=== PATIENT | female | born 1990 | race Caucasian/White ===

== ENCOUNTER → 2020-03-13 15:03 | Outpatient (CLI) | payer OTHER, SELFPAY ==
[2020-03-13 17:25] LABS: Absolute Lymphocyte Count 1.59 X10^3/uL (0.83-4.51); Basophil# 0.05 X10^3/uL; Basophil% 0.8 % (0-1); Eosinophil# 0.06 X10^3/uL; Hematocrit 36.8 % (37-47); Hemoglobin 12.5 g/dL (12.0-15.0); Lymphocyte # 1.59 X10^3/ul (4.0); Mean Corpuscular Volume 91.3 fL (81-99); Mean Platelet Vol. 9.3 fl (6.2-12.0); Monocyte% 6.5 % (0-10); NRBC Flagged by Analyzer 0 % (0-5); Neutrophil # 4.01 X10^3/uL (2.7-7.7); Neutrophil % 65.5 % (47-70); Platelet Count 254 K/mm3 (150-450); RBC Distribution Width CV 12.8 % (11.6-14.6); Red Blood Count 4.03 M/mm3 (4.2-5.4); White Blood Count 6.1 K/mm3 (4.4-11.0)
[2020-03-13 17:31] LABS: Color, Urine Straw (Yellow); Glucose, Dipstick Normal (Normal); Ketone-Dipstick Negative (Negative); Leukocyte Esterase-Dipstick Negative /ul (Negative); Nitrite-Dipstick Negative (Negative); Occult Blood-Urine Negative /ul (Negative); Protein-Dipstick Negative (Negative); Urine Bilirubin Dipstick Negative (Negative); Urine Clarity Clear (Clear); Urine Urobilinogen Normal (Normal)
[2020-03-13 17:45] LABS: Thyroid Stim Hormone (TSH) 1.68 uIU/mL (0.358-3.74)
[2020-03-13 18:27] LABS: Amphetamine Urine VISTA NEGATIVE (<1000 ng/mL); Barbiturate Urine VISTA NEGATIVE (< 200 ng/mL); Benzodiazepine Urine VISTA NEGATIVE (< 200 ng/mL); Cocaine Urine VISTA NEGATIVE (< 300 ng/mL); Ecstacy Urine VISTA NEGATIVE (< 500 ng/mL); Methadone Urine VISTA NEGATIVE (< 300 ng/mL); PCP Urine VISTA NEGATIVE (< 25 ng/mL); THC Urine VISTA NEGATIVE (< 50 ng/mL); Vista UDS pH Range 6
[2020-03-16 09:55] LABS: HIV - WCH Non-Reactive (Nonreactive); Hepatitis B Surface Antigen Non-Reactive (Nonreactive); Hepatitis C Antibody Non-Reactive (Nonreactive); Rubella IgG > 500.0 IU/mL; Vitamin D,25 Hydroxy 18.4 ng/mL
[2020-03-19 01:57] LABS: Prenatal RPR NONREACTIVE (NONREACTIVE)
== END ==
PROVIDERS: PCP Family Medicine; Visit Provider Obstetrics & Gynecology
DX: Z34.81 Encounter for supervision of other normal pregnancy, first trimester (principal)
CPT/HCPCS: 36415; 80307; 81002; 82306; 84443; 85025; 86703; 86762; 86803; 87340; 87491; 87591

== ENCOUNTER → 2020-05-13 11:07 | Outpatient (CLI) | payer OTHER, SELFPAY ==
[2020-05-17 03:06] LABS: AFP MoM Value 1.09 (.); AFP Value-EIA 32.8 ng/mL (.); Comment Report (.); DIA MoM Value 0.46 (.); DIA Value-EIA 72.71 pg/mL (.); DSR (By Age) 502 (.); DSR (Second Trimester) 10000 (.); Gestat. Age Based On As provided (.); Insulin Dep Diabetes No (.); Maternal Age At EDD 32.3 yr (.); hCG MoM 0.65 (.); hCG Value 26060 mIU/mL (.)
== END ==
PROVIDERS: PCP Family Medicine; Visit Provider Obstetrics & Gynecology
DX: Z34.82 Encounter for supervision of other normal pregnancy, second trimester (principal)
CPT/HCPCS: 36415; 82105; 82677; 84702

== ENCOUNTER → 2020-08-05 15:58 | Outpatient (CLI) | payer OTHER, SELFPAY ==
[2020-08-05 17:59] LABS: Glucose Challenge Gest 1H 50g 121 mg/dL (70-140)
[2020-08-05 18:01] LABS: Hematocrit 32.7 % (37-47); Hemoglobin 10.7 g/dL (12.0-15.0); Mean Corp Hgb Conc 32.7 g/dL (32-36); Mean Corpuscular Hgb 30.7 pg (27.0-32.0); Mean Platelet Vol. 9.7 fl (6.2-12.0); Platelet Count 198 K/mm3 (150-450); RBC Distribution Width CV 13.3 % (11.6-14.6); RBC Distribution Width SD 45.3 fl (35.1-43.9); Red Blood Count 3.48 M/mm3 (4.2-5.4); White Blood Count 8.7 K/mm3 (4.4-11.0)
[2020-08-05 18:08] LABS: Vitamin D,25 Hydroxy 35.9 ng/mL
== END ==
PROVIDERS: PCP Family Medicine; Visit Provider Obstetrics & Gynecology
DX: Z34.83 Encounter for supervision of other normal pregnancy, third trimester (principal)
CPT/HCPCS: 36415; 82306; 82950; 85027

== ENCOUNTER → 2020-10-07 11:10 | Outpatient (CLI) | payer OTHER, SELFPAY | PROVIDERS: PCP Family Medicine; Visit Provider Obstetrics & Gynecology | DX: Z34.83 Encounter for supervision of other normal pregnancy, third trimester (principal); Z36.85 Encounter for antenatal screening for Streptococcus B | CPT/HCPCS: 87081 ==

== ENCOUNTER 2020-10-23 15:50 | Inpatient (IN) | payer BC, SELFPAY ==
[2020-10-23 16:12] VITALS: BMI 31.8
--- NOTE | 2020-10-23 16:49 | PCM.HPOB.BLA ---
History and Physical Date of Admission: 10/23/20 HPI: 30 yo at 39/2w, with DEMETRIO 10/28/20 by LMP, presents term induction of labor. Denies LOF, VB, contractions. +FM. Denies NASH, vision changes, chest pain, dyspnea, nausea/emesis. This is complicated by: history of HSV on valtrex suppression last outbreak 8 years ago, no prodromal symptoms. Outbreak in past was vulvar. Obstetrical History G1 current Past Medical History HSV Medications PNV, valtrex, fluoxetine, PNV, vitamin D Past Surgical History hernia repair Social History Tobacco use: former Alcohol use: denies Illicit drug use: denies Labs Blood type: A pos Rubella: immune Hep B/C: neg/neg HIV: neg RPR: nonreactive GBS: neg 10/07 Allergies NKDA Review of Systems General: alert and oriented HEENT: _denies change of vision Heart/lungs: _denies CP, SOB GI: _denies nausea, vomiting, dysuria, diarrhea MSK: _denies calf pain, tenderness Physical Exam Vitals pending General: a&o x3, NAD HEENT: normocephalic, atraumatic Cardio: no JVD Resp: no increased work in breathing Abdomen: soft, gravid, nontender Extremities: _minimal-moderate edema CE: per RN FHT: 145/mod fabiola/+accel/no decel [place]: rare Labs pending Assessment & Plan 30 yo at 39/2w, with DEMETRIO 10/28/20 by LMP, presents term induction of labor. 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 Admit to L&D - Routine labor orders - Cytotec induction - GBS neg - CEFM - Anesthesia to see - HSV on suppression. Last outbreak, vulvar, was 8 years ago. No prodromal symptoms. Patient aware of risk with HSV exposure.
[2020-10-23 17:32] LABS: Absolute Lymphocyte Count 1.87 X10^3/uL (0.83-4.51); Absolute Neutrophil Count 6.1 X10^3/uL (2.0-7.7); Basophil# 0.03 X10^3/uL; Basophil% 0.3 % (0-1); Eosinophil# 0.09 X10^3/uL; Hematocrit 34.6 % (37-47); Lymphocyte # 1.87 X10^3/ul (4.0); Lymphocyte % 21.1 % (19-41); Mean Corp Hgb Conc 31.8 g/dL (32-36); Mean Corpuscular Hgb 28.6 pg (27.0-32.0); Mean Corpuscular Volume 90.1 fL (81-99); Mean Platelet Vol. 9.5 fl (6.2-12.0); Monocyte# 0.62 X10^3/uL; NRBC Flagged by Analyzer 0 % (0-5); Neutrophil # 6.14 X10^3/uL (2.7-7.7); Neutrophil % 69.1 % (47-70); Platelet Count 183 K/mm3 (150-450); RBC Distribution Width CV 14.6 % (11.6-14.6); RBC Distribution Width SD 46.8 fl (35.1-43.9); Red Blood Count 3.84 M/mm3 (4.2-5.4); White Blood Count 8.9 K/mm3 (4.4-11.0)
[2020-10-23] MEDS: miSOPROStol 25 MCG TABLET PO (17:39)
[2020-10-23 17:45] VITALS: TEMP 36.7
[2020-10-23 17:49] VITALS: BP 125/71; PULSE 89
[2020-10-23 19:18] VITALS: BP 125/72; PULSE 86; TEMP 36.8
[2020-10-23] MEDS: miSOPROStol 50 MCG TABLET PO (21:33)
[2020-10-23 23:33] VITALS: BP 135/85; PULSE 100
[2020-10-23 23:34] VITALS: TEMP 36.6
[2020-10-24] VITALS (64 sets, daily range): BP systolic 70–144; BP diastolic 45–96; PULSE 54–136; RESP 16; TEMP 36.1–37.1; O2SAT 82–100
[2020-10-24 00:52] LABS: Chlamydia Trachomatis by PCR Negative (Negative); Neisserai gonorrhoeae by PCR Negative (Negative); Probe Check PASS; Sample Adequacy Control PASS; Specimen Processing Control PASS
[2020-10-24] MEDS: miSOPROStol 50 MCG TABLET PO (03:44)
[2020-10-24] MEDS: 0.9% Saline Lock 10 ML Syringe IV (05:23)
[2020-10-24] MEDS: Oxytocin 30 units/NS 500 ml 30 UNITS/500 ML IV.SOLN IV (10:05)
[2020-10-24] MEDS: Lactated Ringers 1,000 ML 50 ML IV (10:07)
--- NOTE | 2020-10-24 11:10 | PN_ITS ---
Progress Note Patient seen. Examined by RN 2 cm. FHR cat I 140/mod fabiola/+accel/no decel, [place] irregular. Plan: switch to and titrate pitocin as tolerated. STROKE Vital Signs/Narrative: Vital Signs Temp Pulse BP Pulse Ox 10/24/20 10:42 86 131/91 H 10/24/20 10:08 92 129/82 H 10/24/20 07:14 98.1 F 99 97 10/24/20 07:13 101 H 140/89 H
[2020-10-24] MEDS: Lactated Ringers 500 ML 999 ML IV ×3 (17:00→21:04)
[2020-10-24] MEDS: fentaNYL-bupivacaine (epidural) 100 ML BAG EPIDURAL ×2 (18:07→23:48)
[2020-10-24] MEDS: Ondansetron 4 MG/2 ML Vial IV (19:40)
[2020-10-24] MEDS: Lactated Ringers 1,000 ML 200 ML IV (20:45)
[2020-10-25] VITALS (35 sets, daily range): BP systolic 96–127; BP diastolic 55–83; PULSE 85–208; RESP 16–18; TEMP 36.2–37.7; O2SAT 95–100
[2020-10-25] MEDS: Lactated Ringers 1,000 ML 200 ML IV ×4 (01:38→15:58)
[2020-10-25] MEDS: Acetaminophen 500 MG Tablet PO (03:02)
[2020-10-25] MEDS: fentaNYL-bupivacaine (epidural) 100 ML BAG EPIDURAL ×3 (05:53→17:10)
[2020-10-25] MEDS: Ondansetron 4 MG/2 ML Vial IV (18:30)
[2020-10-25] MEDS: Sodium Citrate/Citric Acid 30 ML UDC PO (18:31)
[2020-10-25] MEDS: Cefazolin 2 GM in 0.9% Normal Saline 100 ML IV (18:39)
--- NOTE | 2020-10-25 19:27 | OP.PCM_ITS ---
Delivery Classification: SANJANA Final DEMETRIO: 10/28/20 Final DEMETRIO Source: LMP Gestational age: 39 Weeks and 4 Days Type of Anesthesia:: Epidural Date of Procedure: 10/25/20 Pre-Operative Diagnosis: Zepeda intrauterine . Failed induction of labor, first stage arrest. Post-Operative Diagnosis: Zepeda intrauterine . Failed induction of labor, first stage arrest. Asynclitic lie. Indications: This is a 30-year-old G1, P0 at 39 weeks and 4 days who presented for induction of labor at term. Patient received Cytotec followed by Pitocin for induction management. She had artificial rupture of membranes this morning at 7 AM. Patient progressed through labor to 9 cm. At which time she continued to be unc hanged for greater than 6 hours. Fetus did not tolerate titration of Pitocin, with periods of marked variability after increasing Pitocin dose. At that time patient elected for section. All risks, benefits, alternatives discussed with the patient. Risks include but are not limited to: Risk of bleeding to the point of transfusion, infection, injury to surrounding tissue including bowel or bladder potentially requiring Champion catheter use, VTE, ICU admission. Patient aware and consented. Indications for : Failure to Progress Description of Procedure: Patient was taken to the operating room, epidural was dosed. Patient placed in the supine position with a left lateral tilt. Prepped and draped in the usual sterile fashion. Pfannenstiel skin incision made with scalpel carried down through subcutaneous tissue. Fascia nicked on either side of midline and extended bilaterally with Rose scissors. Vincent clamps used to grasp superior fascial edge which was tented up and underlying rectus muscles were dissected off bluntly. Vincent clamps moved to the inferior fascial edge which was tented up and underlying rectus muscles were dissected off bluntly and sharply at midline using Rose scissors. Hemostats were used to separate the rectus muscles the midline, peritoneum grasped with with hemostats and incised and entered with Metzenbaum scissors. Extended bluntly. Bladder blade placed. Vesicouterine peritoneum identified and a bladder flap was created with Metzenbaum scissors. Bladder blade replaced. Low transverse uterine incision made with scalpel, extended bluntly. Hand placed into the uterus and head was elevated to the level of the incision, bladder blade removed. With the assistance of gentle f undal pressure head delivered followed by body. Asynclitic lie noted. Nuchal cord around the neck noted, loose and reduced. Cord clamped and cut. Baby handed to nursing. Spontaneous delivery of placenta. Uterus exteriorized and cleared of all clots. Normal-appearing uterus, bilateral fallopian tubes and ovaries. Uterine incision closed with a running locking suture followed by a second imbricating stitch. Uterus replaced into the abdomen. Hysterotomy closure noted to be hemostatic. Peritoneum closed in a running fashion. Fascia closed in a running fashion. Subcutaneous tissue then closed in a running fashion. Skin closed with a running subcuticular stitch. At the end of procedure all needle, lap, sponge counts were correct x3. Urine output 250 cc. Amniotic Membrane Rupture Type: Artificial Amniotic Fluid Description: Clear Fluids Replaced: 900 cc Esitmated Blood Loss (ml): 700 cc Infant Gender: Female (1 minute): 8 (5 minute): 9 Delayed cord clamping: Yes Antibiotic Given: Ancef 2 grams IV x1, Zithromax 500 mg/5 mL X1
[2020-10-25] MEDS: Oxytocin 30 units/NS 500 ml 30 UNITS/500 ML IV.SOLN 167 UNITS IV (20:11)
[2020-10-25] MEDS: Acetaminophen 500 MG Tablet 1000 MG PO (20:35)
--- NOTE | 2020-10-25 20:43 | NURSING ---
Epidural catheter removed in OR after surgery. Blue tip intact.
[2020-10-25] MEDS: Lactated Ringers 1,000 ML 100 ML IV (23:25)
[2020-10-26] VITALS (9 sets, daily range): BP systolic 113–128; BP diastolic 66–82; PULSE 94–125; RESP 16–18; TEMP 35.9–37.3; O2SAT 95–100
[2020-10-26] MEDS: Ketorolac 30 MG/ML Syringe IV ×4 (00:28→18:17)
--- NOTE | 2020-10-26 01:52 | NURSING ---
Mepilex dressing noted to be wet from shower. Mepilex dressing removed.
[2020-10-26] MEDS: 0.9% Saline Lock 10 ML Syringe IV ×3 (01:53→12:48)
[2020-10-26] MEDS: Acetaminophen 500 MG Tablet 1000 MG PO ×3 (02:01→18:18)
--- NOTE | 2020-10-26 02:03 | NURSING ---
Call placed to Dr. Lynn to notify that patient's mepilex dressing was saturated from water from the shower, dressing was removed. Verbal order from Dr. Lynn to replace mepilex with a new mepilex dressing. New mepilex dressing applied, dressing now dry and intact. Incision was clean. No redness or swelling noted. Minimal amount of serosanguineous drainage.
[2020-10-26] MEDS: Enoxaparin 40 MG/0.4 ML Syringe SC (06:09)
[2020-10-26 06:16] LABS: Hematocrit 27.1 % (37-47); Hemoglobin 8.9 g/dL (12.0-15.0); Mean Corp Hgb Conc 32.8 g/dL (32-36); Mean Corpuscular Hgb 29.4 pg (27.0-32.0); Mean Corpuscular Volume 89.4 fL (81-99); Mean Platelet Vol. 9.7 fl (6.2-12.0); Platelet Count 173 K/mm3 (150-450); RBC Distribution Width SD 48.7 fl (35.1-43.9); Red Blood Count 3.03 M/mm3 (4.2-5.4); White Blood Count 12.2 K/mm3 (4.4-11.0)
[2020-10-26] MEDS: oxyCODONE 5 MG Tablet PO ×2 (08:03→19:38)
--- NOTE | 2020-10-26 08:34 | PN.OBGYN_ITS ---
Subjective: POD#1 Feeling well. . Lochia minimal. Pain manageable. - Physical Exam Vitals/I&O's: Vital Signs Temp Pulse Resp BP Pulse Ox 99.1 F 100 16 116/68 99 10/26/20 08:18 10/26/20 08:18 10/26/20 08:18 10/26/20 08:18 10/26/20 08:18 Oxygen Delivery Method Room Air Weight: 89.358 kg Body Mass Index (BMI) 31.8 Intake and Output for Last 24 Hours 10/24/20/10/26/20 23:59 23:59 23:59 Intake Total 2648.67 / 2648.67 6147.13 / 6147.13 1181.67 / 1181.67 Output Total 1300 / 1300 250 / 250 Balance 2648.67 / 2648.67 4847.13 / 4847.13 931.67 / 931.67 General: Alert, Oriented x3, No apparent distress HEENT: Atraumatic, Normocephalic Neck: Supple Lungs: Normal air movement Cardiovascular: Regular rate Abdomen: Soft - Mildly tender, dressing c/d. uterus 2 cm below umbilicus Extremities: No edema - trace Neurological: Cranial nerves II-XII grossly intact Psych/Mental Status: Normal Affect Microbiology Past 72 Hours 10/23/20 17:20 Mucosa - Nose SARS-CoV-2 Antigen (Rapid) - Final Laboratory Results 10/26/20 06:10: WBC 12.2 H, RBC 3.03 L, Hgb 8.9 L, Hct 27.1 L, MCV 89.4, MCH 29.4, MCHC 32.8, RDW Std Deviation 48.7 H, RDW Coeff of Duong 15.0 H, Plt Count 173, MPV 9.7 Current Medications Acetaminophen (Acetaminophen 500 Mg Tablet) 1,000 mg PO Q6H [facility] Last Admin: 10/26/20 02:01 Dose: 1,000 mg Documented by: Bisacodyl (Bisacodyl 10 Mg Suppository) 10 mg RECTAL UD PRN PRN Reason: If no BM Diphenhydramine HCl (Diphenhydramine 25 Mg Capsule) 25 mg PO Q6H PRN PRN PRN Reason: ITCHING Stop: 10/26/20 19:49 Enoxaparin Sodium (Enoxaparin 40 Mg/0.4 Ml Syringe) 40 mg SC DAILY [facility] Last Admin: 10/26/20 06:09 Dose: 40 mg Documented by: Hydrocortisone (Hydrocortisone 2.5% Crm) 1 applic TOPICAL TID PRN PRN; Protocol PRN Reason: Discomfort Ibuprofen (Ibuprofen 600 Mg Tablet) 600 mg PO Q6H [facility] Ketorolac Tromethamine (Ketorolac 30 Mg/Ml Syringe) 30 mg IV Q6H [facility] Stop: 10/26/20 18:31 Last Admin: 10/26/20 05:59 Dose: 30 mg Documented by: Methylergonovine Maleate (Methylergonovine 0.2 Mg/Ml Ampul) 0.2 mg IM X1 PRN PRN Reason: Uterine Atony Nalbuphine HCl (Nalbuphine 10 Mg/Ml Ampul) 5 mg IV Q3H PRN PRN PRN Reason: ITCHING Stop: 10/26/20 19:49 Naloxone HCl (Naloxone 0.4 Mg/Ml Syringe) 0.02 mg IV Q1M PRN PRN Reason: RR <10 and pt unresponsive Ondansetron HCl (Ondansetron 4 Mg/2 Ml Vial) 4 mg IV Q4H PRN PRN PRN Reason: Nausea Oxycodone HCl (Oxycodone 5 Mg Tablet) 5 - 10 mg PO Q4H PRN PRN PRN Reason: Pain Score 4-10 Last Admin: 10/26/20 08:03 Dose: 5 mg Documented by: Prochlorperazine Edisylate (Prochlorperazine 10 Mg/2 Ml Vial) 10 mg IV Q6H PRN PRN PRN Reason: NAUSEA Senna/Docusate Sodium (Senna/Docusate Sodium 1 Tablet) 0 tablet PO DAILY [facility] Simethicone (Simethicone 80 Mg Tablet) 80 mg PO PCHS PRN PRN Reason: Indigestion/stomach pain Sodium Chloride (0.9% Saline Lock 10 Ml Syringe) 5 - 15 ml IV UD PRN PRN Reason: SALINE FLUSH Last Admin: 10/26/20 06:00 Dose: 10 ml Documented by: Medical Necessity - Tobacco Use Smoking Status: Former smoker Assessment/Plan POD#1 s/p primary low transverse section for failure to progress/arrest of first stage. Acute blood loss anemia secondary to surgery, iron supplement at home. . Home POD2-3.
[2020-10-26] MEDS: Senna/Docusate Sodium 1 Tablet PO (12:33)
--- NOTE | 2020-10-26 16:25 | CASEMGMT ---
Social Work Labor and Delivery Unit Consult received and noted for maternal history of anxiety. Records reviewed. Plan: Plan to see patient/mother of baby on 10.27.2020. -LISA [place], WAITER/[employer]
[2020-10-27] MEDS: Ibuprofen 600 MG Tablet PO ×4 (00:16→17:48)
[2020-10-27] MEDS: Acetaminophen 500 MG Tablet 1000 MG PO ×4 (00:16→18:34)
[2020-10-27 02:33] VITALS: BP 130/88; PULSE 97; RESP 16; TEMP 36.7
--- NOTE | 2020-10-27 03:12 | NURSING ---
report received from wanda. this RN to assume care of pt at this time.
[2020-10-27] MEDS: oxyCODONE 5 MG Tablet PO ×3 (04:36→19:37)
[2020-10-27 07:30] VITALS: BP 121/88; PULSE 99; RESP 15; TEMP 36.7
--- NOTE | 2020-10-27 08:45 | PN.OBGYN_ITS ---
Subjective: POD#2 Increased pedal edema. Pain controlled with medication. was going very well until later yesterday. Meeting with today. - Physical Exam Vitals/I&O's: Vital Signs Temp Pulse Resp BP Pulse Ox 98.1 F 99 15 121/88 H 99 10/27/20 07:30 10/27/20 07:30 10/27/20 07:30 10/27/20 07:30 10/26/20 08:18 Oxygen Delivery Method Room Air Weight: 89.358 kg Body Mass Index (BMI) 31.8 Intake and Output for Last 24 Hours 10/25/20 10/26/20 10/27/20 23:59 23:59 23:59 Intake Total 6147.13 / 6147.13 1181.67 / 1181.67 Output Total 1300 / 1300 250 / 250 Balance 4847.13 / 4847.13 931.67 / 931.67 General: Alert, Oriented x3, No apparent distress HEENT: Atraumatic, Normocephalic Neck: Supple Lungs: Normal air movement Cardiovascular: Regular rate Abdomen: Soft - dressing c/d Extremities: Edema - +1 pedal edema Neurological: Cranial nerves II-XII grossly intact Psych/Mental Status: Normal Affect Current Medications Acetaminophen (Acetaminophen 500 Mg Tablet) 1,000 mg PO Q6H [facility] Last Admin: 10/27/20 06:19 Dose: 1,000 mg Documented by: Bisacodyl (Bisacodyl 10 Mg Suppository) 10 mg RECTAL UD PRN PRN Reason: If no BM Enoxaparin Sodium (Enoxaparin 40 Mg/0.4 Ml Syringe) 40 mg SC DAILY [facility] Last Admin: 10/26/20 06:09 Dose: 40 mg Documented by: Hydrocortisone (Hydrocortisone 2.5% Crm) 1 applic TOPICAL TID PRN PRN; Protocol PRN Reason: Discomfort Ibuprofen (Ibuprofen 600 Mg Tablet) 600 mg PO Q6H [facility] Last Admin: 10/27/20 06:19 Dose: 600 mg Documented by: Methylergonovine Maleate (Methylergonovine 0.2 Mg/Ml Ampul) 0.2 mg IM X1 PRN PRN Reason: Uterine Atony Naloxone HCl (Naloxone 0.4 Mg/Ml Syringe) 0.02 mg IV Q1M PRN PRN Reason: RR <10 and pt unresponsive Ondansetron HCl (Ondansetron 4 Mg/2 Ml Vial) 4 mg IV Q4H PRN PRN PRN Reason: Nausea Oxycodone HCl (Oxycodone 5 Mg Tablet) 5 - 10 mg PO Q4H PRN PRN PRN Reason: Pain Score 4-10 Last Admin: 10/27/20 04:36 Dose: 10 mg Documented by: Prochlorperazine Edisylate (Prochlorperazine 10 Mg/2 Ml Vial) 10 mg IV Q6H PRN PRN PRN Reason: NAUSEA Senna/Docusate Sodium (Senna/Docusate Sodium 1 Tablet) 0 tablet PO DAILY [facility] Last Admin: 10/26/20 12:33 Dose: 1 tablet Documented by: Simethicone (Simethicone 80 Mg Tablet) 80 mg PO PCHS PRN PRN Reason: Indigestion/stomach pain Sodium Chloride (0.9% Saline Lock 10 Ml Syringe) 5 - 15 ml IV UD PRN PRN Reason: SALINE FLUSH Last Admin: 10/26/20 12:48 Dose: 10 ml Documented by: Medical Necessity - Tobacco Use Smoking Status: Former smoker Assessment/Plan 30 yo POD#2 s/p primary LTCS. Acute blood loss anemia secondary to surgery, iron at home. To see today. Home later today vs tomorrow.
[2020-10-27] MEDS: Enoxaparin 40 MG/0.4 ML Syringe SC (10:42)
[2020-10-27] MEDS: Senna/Docusate Sodium 1 Tablet PO (10:42)
[2020-10-27 13:24] VITALS: BP 130/87; PULSE 93; RESP 15; TEMP 37.1
[2020-10-27 19:39] VITALS: BP 109/75; PULSE 98; RESP 16; TEMP 36.5; O2SAT 97
[2020-10-28] MEDS: Ibuprofen 600 MG Tablet PO ×2 (00:12→06:54)
[2020-10-28] MEDS: Acetaminophen 500 MG Tablet 1000 MG PO ×2 (00:17→06:54)
[2020-10-28 03:01] VITALS: BP 106/85; PULSE 91; RESP 16; TEMP 36.7; O2SAT 97
[2020-10-28] MEDS: oxyCODONE 5 MG Tablet PO ×2 (03:30→10:08)
--- NOTE | 2020-10-28 08:20 | PCM.PN.OB ---
Subjective: Pain is controlled, oob and ambulating. Passing flatus, no BM yet. tolerates PO. Nursing going well with nipple shield. Denies heavy lochia. Objective: avss - Physical Exam Vitals/I&O's: Vital Signs Temp Pulse Resp BP Pulse Ox 98.0 F 91 16 106/85 H 97 10/28/20 03:01 10/28/20 03:01 10/28/20 03:01 10/28/20 03:01 10/28/20 03:01 Oxygen Delivery Method Room Air Weight: 89.358 kg Body Mass Index (BMI) 31.8 Intake and Output for Last 24 Hours 10/26/20 10/27/20 10/28/20 23:59 23:59 23:59 Intake Total 1181.67 / 1181.67 Output Total 250 / 250 Balance 931.67 / 931.67 General: Alert, Oriented x3, Cooperative, No apparent distress HEENT: Atraumatic, Normocephalic Lungs: Clear to auscultation, Normal air movement Cardiovascular: Regular rate, Regular Rhythm, Normal S1, Normal S2 Abdomen: Soft, Non Tender, Non-Distended, - - Fundus firm and nontender, lochia scant, incisional dressing c/d/i Extremities: No Calf Tenderness, - - +1 b/l LE edema Neurological: Neuro grossly intact Psych/Mental Status: Normal Affect, Appropriate, Alert and oriented to time, place, person, mood and affect Current Medications Acetaminophen (Acetaminophen 500 Mg Tablet) 1,000 mg PO Q6H [facility] Last Admin: 10/28/20 06:54 Dose: 1,000 mg Documented by: Bisacodyl (Bisacodyl 10 Mg Suppository) 10 mg RECTAL UD PRN PRN Reason: If no BM Enoxaparin Sodium (Enoxaparin 40 Mg/0.4 Ml Syringe) 40 mg SC DAILY [facility] Last Admin: 10/27/20 10:42 Dose: 40 mg Documented by: Hydrocortisone (Hydrocortisone 2.5% Crm) 1 applic TOPICAL TID PRN PRN; Protocol PRN Reason: Discomfort Ibuprofen (Ibuprofen 600 Mg Tablet) 600 mg PO Q6H [facility] Last Admin: 10/28/20 06:54 Dose: 600 mg Documented by: Methylergonovine Maleate (Methylergonovine 0.2 Mg/Ml Ampul) 0.2 mg IM X1 PRN PRN Reason: Uterine Atony Naloxone HCl (Naloxone 0.4 Mg/Ml Syringe) 0.02 mg IV Q1M PRN PRN Reason: RR <10 and pt unresponsive Ondansetron HCl (Ondansetron 4 Mg/2 Ml Vial) 4 mg IV Q4H PRN PRN PRN Reason: Nausea Oxycodone HCl (Oxycodone 5 Mg Tablet) 5 - 10 mg PO Q4H PRN PRN PRN Reason: Pain Score 4-10 Last Admin: 10/28/20 03:30 Dose: 10 mg Documented by: Prochlorperazine Edisylate (Prochlorperazine 10 Mg/2 Ml Vial) 10 mg IV Q6H PRN PRN PRN Reason: NAUSEA Senna/Docusate Sodium (Senna/Docusate Sodium 1 Tablet) 0 tablet PO DAILY [facility] Last Admin: 10/27/20 10:42 Dose: 2 tablet Documented by: Simethicone (Simethicone 80 Mg Tablet) 80 mg PO PCHS PRN PRN Reason: Indigestion/stomach pain Sodium Chloride (0.9% Saline Lock 10 Ml Syringe) 5 - 15 ml IV UD PRN PRN Reason: SALINE FLUSH Last Admin: 10/26/20 12:48 Dose: 10 ml Documented by: Medical Necessity - Tobacco Use Smoking Status: Former smoker Assessment/Plan 30yo POD#3 s/p PLTCS doing well. -Rh positive -Routine postop care - -Plan for d/c home today
[2020-10-28 08:45] VITALS: BP 119/77; PULSE 87; RESP 18; TEMP 36.2; O2SAT 97
[2020-10-28] MEDS: Enoxaparin 40 MG/0.4 ML Syringe SC (10:09)
[2020-10-28] MEDS: Senna/Docusate Sodium 1 Tablet PO (10:09)
== END 2020-10-28 10:45 | disposition home or self-care (01) | DRG 786 ==
PROVIDERS: Admitting Provider Student in an Organized Health Care Education/Training Program; PCP Family Medicine; Visit Provider Student in an Organized Health Care Education/Training Program
DX: O62.2 Other uterine inertia (principal); O99.42 Diseases of the circulatory system complicating childbirth; O98.32 Other infections with a predominantly sexual mode of transmission complicating childbirth; Z37.0 Single live birth; O12.04 Gestational edema, complicating childbirth; O99.02 Anemia complicating childbirth; O61.9 Failed induction of labor, unspecified; Z3A.39 39 weeks gestation of pregnancy; B00.9 Herpesviral infection, unspecified; Z87.891 Personal history of nicotine dependence; O76 Abnormality in fetal heart rate and rhythm complicating labor and delivery; O69.81X0 Labor and delivery complicated by cord around neck, without compression, not applicable or unspecified
CPT/HCPCS: 59025; 59050; 85025; 85027; 86850; 86900; 86901; 87426; 87491; 87591; 99218; J7120; A4216; G0378; J2405; J3490

== ENCOUNTER → 2020-12-01 | Outpatient (CLI) | payer BC, SELFPAY ==
[2020-12-05 14:26] LABS: HPV APTIMA, High Risk Negative (Negative)
== END | disposition home or self-care (01) ==
LOC: LABSPEC 12-02 09:15
PROVIDERS: PCP Family Medicine; Visit Provider Student in an Organized Health Care Education/Training Program
DX: Z12.4 Encounter for screening for malignant neoplasm of cervix (principal)
CPT/HCPCS: 87624; 88175; G0145